=== PATIENT | male | born 1945 | race Caucasian/White ===

== ENCOUNTER 2025-03-23 02:50 | Outpatient (CLI) | payer MEDICARE, BC, SELFPAY ==
--- NOTE | 2025-03-23 07:00 | DI.RAD_ITS ---
Exam(s) XR FOOT LT COMPLETE XR FOOT RT COMPLETE EXAM: XR FOOT RT COMPLETE CLINICAL HISTORY: Right foot pain M79.671. TECHNIQUE: 2D digital imaging was performed. Three views of both feet. COMPARISON: CR XR FOOT LT COMPLETE from 03/23/2025 FINDINGS: BONES: No acute fracture is present. No bony destructive lesion is seen. JOINTS: No dislocation present. Plantar arches are maintained. There are minimal degenerative changes SOFT TISSUE: Normal. IMPRESSION: Unremarkable radiographs of the bilateral feet. DATA REPOSITORY: RADIATION DOSE DELIVERED:
== END 2025-03-23 03:10 ==
LOC: DI 02:50
PROVIDERS: PCP Family Medicine; Visit Provider Podiatrist
DX: M79.672 Pain in left foot (principal); M79.671 Pain in right foot
CPT/HCPCS: 73630

== ENCOUNTER 2025-04-20 01:08 | Outpatient (CLI) | payer MEDICARE, BC, SELFPAY ==
--- NOTE | 2025-04-20 06:15 | DI.RAD_ITS ---
Exam(s) XR TOE LT GREAT EXAM: XR TOE LT GREAT CLINICAL HISTORY: ? healed,nondisplaced fx lt great toe,s92.405a. TECHNIQUE: 2D digital imaging was performed. Three images were obtained. COMPARISON: CR XR FOOT LT COMPLETE from 03/23/2025 FINDINGS: BONES: No acute fracture is present. No bony destructive lesion is seen. JOINTS: No dislocation present. SOFT TISSUE: There is a well corticated small osseous density at the lateral aspect of the interphalangeal joint which appears old. IMPRESSION: No evidence of acute fracture, dislocation, or subluxation. DATA REPOSITORY: RADIATION DOSE DELIVERED:
== END 2025-04-20 01:28 ==
LOC: DI 01:08
PROVIDERS: PCP Family Medicine; Visit Provider Podiatrist
DX: S92.405A Nondisplaced unspecified fracture of left great toe, initial encounter for closed fracture (principal); X58.XXXA Exposure to other specified factors, initial encounter
CPT/HCPCS: 73660

== ENCOUNTER → 2025-05-30 13:29 | Outpatient (BNVA) | payer MEDICARE, BC, SELFPAY | PROVIDERS: PCP Family Medicine; Referring Provider Family Medicine; Visit Provider Physician Assistant | DX: M17.12 Unilateral primary osteoarthritis, left knee (principal); Z96.643 Presence of artificial hip joint, bilateral | CPT/HCPCS: 99213 ==